=== PATIENT | female | born 1980 | race Caucasian/White ===

== ENCOUNTER 2017-12-01 21:29 | Emergency (ER) | payer SELFPAY ==
[~2017-12-01 21:29] MED LIST: CEPH-460 PO; HYDR-3533 PO; MACR100C2 PO
--- NOTE | 2017-12-01 22:17 | PD ---
HPI Chief Complaint Contractions Travel History International Travel<30 Days: No Contact w/Intl Traveler<30Days: No Known Affected Area: No History of Present Illness HPI 37-year-old , IUP at 31.4 care complicated by gestational diabetes, obesity, advanced maternal age, history of delivery 2 The patient presents complaining of the onset of contractions yesterday but reports that they were irregular and mild. She reports that they have gradually increased in intensity and frequency throughout the day today to now every 5 minutes. There are no aggravating or alleviating factors and no attempted treatments. The patient denies recent intercourse. Patient reports good movement. The patient denies any leaking of fluid or vaginal bleeding. The patient has no other complaints today. Weeks Gestation: 31 Para: 3 : 4 History Past Medical History Narrative Medical Gestational diabetes Obesity Obstetric History Obstetric History 203 Full-term 1 delivery 2 Past Surgical History Surgical History: No Previous Surgery Family History Family History: Negative Social History Alcohol Use: No Tobacco Use: No Substance Abuse: No Allergies-Medications (Allergen,Severity, Reaction): Coded Allergies: No Known Allergies (Unverified Adverse Reaction, Unknown, 12/01/17) Home Meds Active Scripts Hydrocodone-Acetaminophen (Lortab) 5-325 Mg Tab, 1 TAB PO Q6H Y for PAIN, #20 TAB 0 Refills Prov:Al Mercado MD 05/22/16 Nitrofurantoin Monohydrate Macrocrystals (Macrobid) 100 Mg Cap, 100 MG PO BID for Infection, #14 CAP 0 Refills Prov:Sanjuana Antonio 05/22/16 Cephalexin (Keflex) 500 Mg Cap, 500 MG PO Q12H for Infection for 7 Days, CAP 0 Refills Prov:Cruzito Biggs MD 05/20/16 Review of Systems Except as stated in HPI: all other systems reviewed are Neg Physical Exam Narrative GENERAL: Well-nourished, well-developed patient. SKIN: Warm and dry. HEAD: Normocephalic and atraumatic. EYES: No scleral icterus. No injection or drainage. ENT: No nasal drainage noted. Mucous membranes pink. Airway patent. NECK: Supple, trachea midline. No JVD. CARDIOVASCULAR: Regular rate and rhythm without murmurs, gallops, or rubs. RESPIRATORY: Breath sounds equal bilaterally. No accessory muscle use. BREASTS: Deferred ABDOMEN/GI: Abdomen soft, non-tender, bowel sounds present, no rebound, no guarding Gravid GENITOURINARY: External Genitalia: intact and normal in appearance. Normal BUS. No cervical or vaginal masses noted. Physiologic discharge. Grossly normal rugated. fibronectin was obtained. SVE closed/30/high FHT's: heart tones are in the 130s with moderate long-term variability, good accelerations, no decelerations noted. This is a reactive NST and category 1 heart rate tracing EXTREMITIES: No cyanosis or edema. BACK: Nontender without obvious deformity. NEUROLOGICAL/musculoskeletal: Awake and alert. Motor and sensory grossly within normal limits. Grossly normal muscle strength in all muscle groups. Normal speech. Grossly normal range of motion, gait Psychiatric: Grossly normal memory and affect MDM Plan Assessment/plan: 1. IUP at 30 one-point for 2. History of delivery 2 but no evidence of labor tonight. The patient presents complaining of contractions her cervix is closed and there are only occasional contractions noted. fibronectin negative. Strict labor precautions. encourage good hydration, counseled on signs and symptoms of labor 3. Urinalysis: No evidence of UTI 4. Obesity 5. Gestational diabetes: Follow with primary OB as directed 6. testing: Reassuring testing with reactive NST and category 1 heart rate tracing. heart rate tracing is reassuring and appropriate for gestational age. kick counts daily 7. Follow-up with primary OB in 2-3 days or sooner if needed Rose Molina MD Dec 01, 2017 22:17
[2017-12-01 23:07] LABS: BACTERIA, URINE FEW /hpf; BILIRUBIN, URINE NEG (NEG); BLOOD, URINE NEG (NEG); GLUCOSE,URINE >=500 mg/dL (NEG); KETONE, URINE 20 mg/dL (NEG); MUCUS URINE FEW /lpf (OCC); NITRITE,URINE NEG (NEG); SQUAMOUS EPITHELIAL CELL URINE 9 /hpf (0-5); URINE COLOR YELLOW (YELLW/STRAW); URINE LEUKOCYTE ESTERASE TRACE (NEG)
--- NOTE | 2017-12-01 23:36 | PD ---
MDM Diagnosis Diagnosis: Primary Impression: 31 weeks gestation of Additional Impression: Threatened labor Disposition: 01 DISCHARGE HOME Condition: Stable Patient Instructions: General Instructions, Labor (ED), Having Your Baby: The Labor Process (GEN), Movement (ED) Additional Instructions: Drink 8-10 large glasses of water per day. Call labor and delivery with any concerns or questions. Go to the hopsital with concerns of decreased movement, sudden gush of fluids, or vaginal bleeding. Departure Forms: Tests/Procedures Rose Molina MD Dec 01, 2017 23:36
== END 2017-12-02 00:05 | disposition home or self-care (01) ==
LOC: HOBED 21:29
DX: O20.0 Threatened abortion (principal); O99.213 Obesity complicating pregnancy, third trimester; O24.419 Gestational diabetes mellitus in pregnancy, unspecified control; Z3A.31 31 weeks gestation of pregnancy; Z79.899 Other long term (current) drug therapy
CPT/HCPCS: 81001; 82731; 99283

== ENCOUNTER 2018-01-22 16:00 | Inpatient (IN) ==
[2018-01-22] MEDS ORDERED: NIFEdipine 10 MG Capsule PO PRN (16:24)
[2018-01-22] MEDS ORDERED: fentaNYL Citrate Inj 100 MCG/2 ML Ampul IV.PUSH PRN ×2 (16:53)
[2018-01-22] MEDS ORDERED: Sodium Chlor 0.9% Inj 500 ML IV.SIG PRN (16:53)
[2018-01-22] MEDS ORDERED: Oxytocin 30 Units/500ml Premix 30 UNITS/500 ML BAG IV.SIG ONE (16:53)
[2018-01-22] MEDS ORDERED: Naloxone Inj 0.4 MG/ML Vial IV.PUSH PRN (16:53)
[2018-01-22] MEDS ORDERED: Sod Chloride 0.9% Inj 1,000 ML IV.CONT PRN (16:53)
[2018-01-22 17:00] LABS: Hematocrit 39.1 % (35.0-46.0); Mean Corpuscular HGB Conc 33.3 % (32.0-36.0); Mean Corpuscular Volume 87.1 fL (80.0-100.0); Mean Platelet Volume 9.1 fL (7.0-11.0); Platelet Count 253 th/mm3 (150-450); Red Blood Count 4.49 mil/mm3 (4.00-5.30); Red Cell Distribution Width 13.6 % (11.6-17.2); White Blood Count 8.5 th/mm3 (4.0-11.0)
[2018-01-22] MEDS ORDERED: Citric Acid/Sodium Citrate Liq 30 ML UDC PO SCH (17:00)
--- NOTE | 2018-01-22 17:00 | ED ---
History of Present Illness Primary Care Physician: No Primary Care Physician Chief Complaint: Contractions History of Present Illness: 37 year old female at 38/6 presents with contractions since this morning and pelvic pressure. She has felt unwell since this morning. Headache, SOB, fatigue, nausea. No fever, CP, change in vision, urinary symptoms, epigastric pain, or abdominal pain. Had some clear loss of fluid this morning. No vaginal bleeding. Feels like baby has been moving less. No complications this . Takes insulin for her diabetes (20-10 in am and 10-10 in evenings). She had two and one term vaginal . She had one spontaneous . Weeks Gestation:: 39 Para: 3 : 5 Review of Systems All other systems reviewed negative except as stated in HPI PMFSH - Medical / Surgical Hx Neg / Unobtainable Surgical History: No Previous Surgery - Medical History Medical History: Medical History (Last Updated 01/22/18 @ 17:15 by Audelia Harris MD, R1) Diabetes (Acute) - Tobacco History Second Hand Smoke Exposure: No Smoking Status: Never smoker - Alcohol History How Often Do You Have a Drink Containing Alcohol: Never (during ) - Substance Use History Substance History: No History of Abuse - Travel History Recent Travel in the [place] Within the Last 8 Weeks: No Recent Travel Out of the Country Within the Last 8 Weeks: No Medications and Allergies Active Medications: Active Medications Calcium Gluconate (Calcium Gluconate Inj) 1 gm IV.PUSH PRN PRN PRN Reason: Magnesium toxicity Citric Acid/Sodium Citrate (Sodium Citrate/Citric Acid Liq) 30 ml PO PIPELINE DISPATCHER DUNIA Stop: 01/26/18 16:59 Fentanyl Citrate (Fentanyl Inj) 50 mcg IV.PUSH Q1H PRN PRN Reason: Pain Scale 3 - 5 Fentanyl Citrate (Fentanyl Inj) 100 mcg IV.PUSH Q1H PRN PRN Reason: PAIN SCALE 6 TO 10 Sodium Chloride (Ns Inj) 500 mls @ 1,000 mls/hr IV.SIG UNSCH PRN PRN Reason: SEE LABEL COMMENTS Oxytocin (Pitocin 30 Units/Ns 500 Ml Premix) 30 units in 500 mls @ 999 mls/hr IV.SIG BOLUS ONE Stop: 01/22/18 17:23 Sodium Chloride (Ns Inj) 1,000 mls @ 100 mls/hr IV.CONT .Q10H PRN PRN Reason: SEE LABEL COMMENTS Lidocaine HCl (Xylocaine 1% Inj) 0.1 ml I-DERMAL PRN PRN PRN Reason: For IV start Stop: 01/25/18 16:52 Lidocaine HCl (Xylocaine 1% Inj) 10 ml INFILTRATN PRN PRN PRN Reason: For episiotomy repair Stop: 01/24/18 16:52 Mineral Oil (Muri-Lube Oil) 10 ml TOPICAL PRN PRN PRN Reason: PRN perineal massage Naloxone HCl (Narcan Inj) 0.1 mg IV.PUSH Q2M PRN PRN Reason: for opiate reversal Nifedipine (Procardia) 10 mg PO NOW PRN PRN Reason: SEE LABEL COMMENTS Sodium Chloride (Ns Flush) 2 ml IV.FLUSH BID DUNIA Sodium Chloride (Ns Flush) 2 ml IV.FLUSH PRN PRN PRN Reason: FLUSH AFTER USING IV ACCESS Allergies Allergy/AdvReac Type Severity Reaction Status Date / Time No Known Allergies Allergy Verified 01/22/18 16:55 Home Medications Medication Instructions Recorded Confirmed Type insulin NPH and regular human 10 unit INJ BID 01/10/18 01/22/18 History insulin NPH isoph U-100 human 10 unit INJ QPM 01/10/18 01/10/18 History insulin NPH isoph U-100 human 20 unit SUB-Q QAM 01/10/18 01/22/18 History Exam Vital signs: Vital Signs 01/22/18 16:22 01/22/18 16:26 01/22/18 16:42 Temperature 98.2 F Pulse Rate 68 71 74 Respiratory Rate 18 Blood Pressure 184/92 H 172/90 H 159/93 H Intake & Output 01/21/18 01/22/18 01/22/18 18:59 06:59 18:59 Weight 90 kg Narrative: GENERAL: Well-nourished, well-developed patient. SKIN: Warm and dry. HEAD: Normocephalic and atraumatic. EYES: No scleral icterus. No injection or drainage. ENT: No nasal drainage noted. Mucous membranes pink. Airway patent. NECK: Supple, trachea midline. No JVD. CARDIOVASCULAR: Regular rate and rhythm without murmurs, gallops, or rubs. RESPIRATORY: Breath sounds equal bilaterally. No accessory muscle use. BREASTS: Bilateral exam showed no masses , no retractions, no nipple discharge. ABDOMEN/GI: Abdomen soft, non-tender, bowel sounds present, no rebound, no guarding Gravid to [-] weeks size Fundal Height: [-] GENITOURINARY: External Genitalia: intact and normal in appearance BUS glands: [-] cervix: Dilatation:1 Effacement:10 Station: -3 Membranes: intact Uterine Contractions: every 10 minutes FHT's: Category: 1 Baseline:150 Reactive: yes Variability:moderate Decels: none Results - Labs CBC & Chem 7: 01/22/18 16:30 01/22/18 16:30 Assessment and Plan - Diagnosis (1) Hypertension affecting Code(s): O16.9 - Unspecified maternal hypertension, unspecified trimester Status: Acute Plan: 37 year old female at 38 weeks and 6 days presents with contractions. BP170 /90 -Urine dip protein 300 and 500 glucose -CMP -UA -Nifedipine 10mg lowered Bp 150/80 -Admit to labor and delivery -Mg -1/2 NS -Cervidil vaginally -GBS PCR -glucose 140; POC glucose checks nursing Discharge Plan - Discharge Disposition Patient Disposition: 30 Still Patient - Discharge Condition Condition: Good - Physicians Team ED Provider: Devang Bruner Primary Care Provider: Primary Care Johanny Romeo
[2018-01-22] MEDS ORDERED: Mag Sulf/Water 4 gm/100 ml 100 ML IV.SIG ONE (17:10)
[2018-01-22 17:18] LABS: Alanine Aminotransferase 23 U/L (10-53); Albumin 2.2 g/dL (3.4-5.0); Anion Gap 10 meq/L (5-15); Aspartate Aminotransferase 25 U/L (15-37); Calcium 8.3 mg/dL (8.5-10.1); Carbon Dioxide 22.5 meq/L (21.0-32.0); Chloride 106 meq/L (98-107); Glomerular Filtration Rate 72 mL/min (>89); Glucose,Random 173 mg/dL (74-106); Potassium 4.1 meq/L (3.5-5.1); Sodium 138 meq/L (136-145); Uric Acid 4.9 mg/dl (2.6-6.0)
[2018-01-22 17:20] LABS: Alkaline Phosphatase 101 U/L (45-117); Blood Urea Nitrogen 13 mg/dL (7-18); Total Protein 6.6 g/dL (6.4-8.2)
--- NOTE | 2018-01-22 17:31 | P.HPOB ---
History of Present Illness Primary Care Physician: No Primary Care Physician Chief Complaint: Contractions History of Present Illness: 37 year old female at 38/6 presents with contractions since this morning and pelvic pressure. She has felt unwell since this morning. Headache, SOB, fatigue, nausea. No fever, CP, change in vision, urinary symptoms, epigastric pain, or abdominal pain. Had some clear loss of fluid this morning. No vaginal bleeding. Feels like baby has been moving less. No complications this . Takes insulin for her diabetes (20-10 in am and 10-10 in evenings). She had two and one term vaginal . She had one spontaneous . Weeks Gestation:: 39 - Inpatient Certification I certify that the inpatient services were ordered in accordance with Medicare regulations governing the order. This includes certification that hospital inpatient services are reasonable and necessary and in the case of services not specified as inpatient-only under 42 CFR 419.22(n), that they are appropriately provided as inpatient services in accordance to with the 2-midnight benchmark under 43 CFR 412.3(e) Estimated Total Length of Stay (Days): 2 Plans for Post Hospital Care: Home Review of Systems All other systems reviewed negative except as stated in HPI [facility] - Medical History Medical History: Medical History (Last Updated 01/22/18 @ 17:15 by Audelia Harris MD, R1) Diabetes (Acute) - Tobacco History Second Hand Smoke Exposure: No Smoking Status: Never smoker - Alcohol History How Often Do You Have a Drink Containing Alcohol: Never (during ) - Substance Use History Substance History: No History of Abuse - Travel History Recent Travel in the [place] Within the Last 8 Weeks: No Recent Travel Out of the Country Within the Last 8 Weeks: No Medications and Allergies Active Medications: Active Medications Calcium Gluconate (Calcium Gluconate Inj) 1 gm IV.PUSH PRN PRN PRN Reason: Magnesium toxicity Citric Acid/Sodium Citrate (Sodium Citrate/Citric Acid Liq) 30 ml PO CONTRACT OFFICER [facility] Stop: 01/26/18 16:59 Fentanyl Citrate (Fentanyl Inj) 50 mcg IV.PUSH Q1H PRN PRN Reason: Pain Scale 3 - 5 Fentanyl Citrate (Fentanyl Inj) 100 mcg IV.PUSH Q1H PRN PRN Reason: PAIN SCALE 6 TO 10 Sodium Chloride (Ns Inj) 500 mls @ 1,000 mls/hr IV.SIG UNSCH PRN PRN Reason: SEE LABEL COMMENTS Sodium Chloride (Ns Inj) 1,000 mls @ 100 mls/hr IV.CONT .Q10H PRN PRN Reason: SEE LABEL COMMENTS Sodium Chloride (1/2 Normal Saline Inj) 1,000 mls @ 75 mls/hr IV.CONT .[id number] DUNIA Magnesium Sulfate (Magnesium Sulfate/Water 40 Gm/1000 Ml Premix) 40 gm in 1, 000 mls @ 50 mls/hr IV.CONT Q24H DUNIA Lidocaine HCl (Xylocaine 1% Inj) 0.1 ml I-DERMAL PRN PRN PRN Reason: For IV start Stop: 01/25/18 16:52 Lidocaine HCl (Xylocaine 1% Inj) 10 ml INFILTRATN PRN PRN PRN Reason: For episiotomy repair Stop: 01/24/18 16:52 Mineral Oil (Muri-Lube Oil) 10 ml TOPICAL PRN PRN PRN Reason: PRN perineal massage Naloxone HCl (Narcan Inj) 0.1 mg IV.PUSH Q2M PRN PRN Reason: for opiate reversal Nifedipine (Procardia) 10 mg PO NOW PRN PRN Reason: SEE LABEL COMMENTS Nifedipine (Procardia) 20 mg PO NOW PRN PRN Reason: SEE LABEL COMMENTS Nifedipine (Procardia) 20 mg PO NOW PRN PRN Reason: SEE LABEL COMMENTS Sodium Chloride (Ns Flush) 2 ml IV.FLUSH BID DUNIA Sodium Chloride (Ns Flush) 2 ml IV.FLUSH PRN PRN PRN Reason: FLUSH AFTER USING IV ACCESS Allergies Allergy/AdvReac Type Severity Reaction Status Date / Time No Known Allergies Allergy Verified 01/22/18 16:55 Home Medications Medication Instructions Recorded Confirmed Type insulin NPH and regular human 10 unit INJ BID 01/10/18 01/22/18 History insulin NPH isoph U-100 human 10 unit INJ QPM 01/10/18 01/10/18 History insulin NPH isoph U-100 human 20 unit SUB-Q QAM 01/10/18 01/22/18 History Exam Vital signs: Vital Signs 01/22/18 16:22 01/22/18 16:26 01/22/18 16:42 Temperature 98.2 F Pulse Rate 68 71 74 Respiratory Rate 18 Blood Pressure 184/92 H 172/90 H 159/93 H 01/22/18 17:00 Temperature Pulse Rate 94 H Respiratory Rate Blood Pressure 154/91 H Intake & Output 01/21/18 01/22/18 01/22/18 18:59 06:59 18:59 Weight 90 kg Narrative: GENERAL: Well-nourished, well-developed patient. SKIN: Warm and dry. HEAD: Normocephalic and atraumatic. EYES: No scleral icterus. No injection or drainage. ENT: No nasal drainage noted. Mucous membranes pink. Airway patent. NECK: Supple, trachea midline. No JVD. CARDIOVASCULAR: Regular rate and rhythm without murmurs, gallops, or rubs. RESPIRATORY: Breath sounds equal bilaterally. No accessory muscle use. BREASTS: Bilateral exam showed no masses , no retractions, no nipple discharge. ABDOMEN/GI: Abdomen soft, non-tender, bowel sounds present, no rebound, no guarding Gravid to [-] weeks size Fundal Height: [-] GENITOURINARY: External Genitalia: intact and normal in appearance BUS glands: [-] cervix: Dilatation:1 Effacement:10 Station: -3 Membranes: intact Uterine Contractions: every 10 minutes FHT's: Category: 1 Baseline:150 Reactive: yes Variability:moderate Decels: none Results - Labs CBC & Chem 7: 01/22/18 16:30 01/22/18 16:30 Labs: Laboratory Results - last 24 hr 01/22/18 01/22/18 01/22/18 16:30 16:30 16:30 WBC 8.5 RBC 4.49 Hgb 13.0 Hct 39.1 MCV 87.1 MCH 29.0 MCHC 33.3 RDW 13.6 Plt Count 253 MPV 9.1 Sodium 138 Potassium 4.1 Chloride 106 Carbon Dioxide 22.5 Anion Gap 10 BUN 13 Creatinine 0.88 Estimated GFR 72 L POC Glucose Random Glucose 173 H Uric Acid 4.9 Calcium 8.3 L Total Bilirubin 0.2 AST 25 ALT 23 Alkaline Phosphatase 101 Total Protein 6.6 Albumin 2.2 L Urine Opiates Screen Cancelled Ur Barbiturates Screen Cancelled Ur Amphetamines Screen Cancelled U Benzodiazepines Scrn Cancelled Urine Cocaine Screen Cancelled U Cannabinoids Screen Cancelled 01/22/18 17:24 WBC RBC Hgb Hct MCV MCH MCHC RDW Plt Count MPV Sodium Potassium Chloride Carbon Dioxide Anion Gap BUN Creatinine Estimated GFR POC Glucose 140 H Random Glucose Uric Acid Calcium Total Bilirubin AST ALT Alkaline Phosphatase Total Protein Albumin Urine Opiates Screen Ur Barbiturates Screen Ur Amphetamines Screen U Benzodiazepines Scrn Urine Cocaine Screen U Cannabinoids Screen Caprini VTE Risk Assessment Caprini VTE Risk Assessment: No/Low Risk (score <= 1) Caprini Risk Assessment Model: Point Value = 1 Point Value = 2 Point Value = 3 Point Value = 5 Age 41-60 Minor surgery BMI > 25 kg/m2 Swollen legs Varicose veins or History of unexplained or recurrent spontaneous Oral contraceptives or hormone replacement Sepsis (< 1 month) Serious lung disease, including pneumonia (< 1 month) Abnormal pulmonary function Acute myocardial infarction Congestive heart failure (< 1 month) History of inflammatory bowel disease Medical patient at bed rest Age 61-74 Arthroscopic surgery Major open surgery (> 45 min) Laparoscopic surgery (> 45 min) Malignancy Confined to bed (> 72 hours) Immobilizing plaster cast Central venous access Age >= 75 History of VTE Family history of VTE Factor V Leiden Prothrombin [id number] Lupus anticoagulant Anticardiolipin antibodies Elevated serum homocysteine Heparin-induced thrombocytopenia Other congenital or acquired thrombophilia Stroke (< 1 month) Elective arthroplasty Hip, pelvis, or leg fracture Acute spinal cord injury (< 1 month) Prophylaxis Regimen: Total Risk Factor Score Risk Level Prophylaxis Regimen 0-1 Low Early ambulation 2 Moderate Order ONE of the following: *Sequential Compression Device (SCD) *Heparin 5000 units SQ BID 3-4 Higher Order ONE of the following medications: *Heparin 5000 units SQ TID *Enoxaparin/Lovenox 40 mg SQ daily (WT < 150 kg, CrCl > 30 mL/min) *Enoxaparin/Lovenox 30 mg SQ daily (WT < 150 kg, CrCl > 10-29 mL/min) *Enoxaparin/Lovenox 30 mg SQ BID (WT < 150 kg, CrCl > 30 mL/min) AND/OR *Sequential Compression Device (SCD) 5 or more Highest Order ONE of the following medications: *Heparin 5000 units SQ TID (Preferred with Epidurals) *Enoxaparin/Lovenox 40 mg SQ daily (WT < 150 kg, CrCl > 30 mL/min) *Enoxaparin/Lovenox 30 mg SQ daily (WT < 150 kg, CrCl > 10-29 mL/min) *Enoxaparin/Lovenox 30 mg SQ BID (WT < 150 kg, CrCl > 30 mL/min) AND *Sequential Compression Device (SCD) Assessment and Plan - Diagnosis (1) Hypertension affecting Code(s): O16.9 - Unspecified maternal hypertension, unspecified trimester Status: Acute Plan: 37 year old female at 38 weeks and 6 days presents with contractions. BP170 /90 -Urine dip protein 300 and 500 glucose -CMP -UA -Nifedipine 10mg lowered Bp 150/80 -Admit to labor and delivery -Mg -1/2 NS -Cervidil vaginally -GBS PCR -glucose 140; POC glucose checks nursing
[2018-01-22] MEDS: Mag Sulf/Water 40 gm/1000 ml 40 GM/1,000 ML BAG IV.CONT SCH (17:33)
[2018-01-22 17:55] LABS: Amphetamine Urine With Conf Neg (Neg); Benzodiazepine Urine With Conf Neg (Neg)
[2018-01-22 17:58] LABS: Bilirubin,Urine Negative (Negative); Clarity,Urine Hazy (Clear); Color,Urine Yellow (Yellw/Straw); Glucose,Urine (UA) 500 or Greater mg/dL (Negative); Leukocyte Esterase,Urine Trace (Negative); Nitrite,Urine Negative (Negative); Protein/Creatinine Ratio,Urine 3.02 (0.00-0.14); Specific Gravity,Urine 1.022 (1.002-1.035); Squamous Epithelial Cell,Urine 3 /hpf (0-5)
[2018-01-22] MEDS: Acetaminophen 325 MG Tablet PO PRN (19:40)
[2018-01-22] MEDS ORDERED: Butalbital/APAP/Caff 50/325/40 MG Tablet PO ONE (22:00)
[2018-01-22] MEDS ORDERED: Labetalol HCl Inj 100 MG/20 ML Vial ONE (22:57)
[2018-01-22] MEDS ORDERED: fentaNYL 2MCG-Bupiv 0.125% Epi 150 ML EPIDURAL ONE (23:10)
[2018-01-22] MEDS: Sodium Chloride 0.45 % Inj 1,000 ML IV.CONT SCH (23:57)
[2018-01-23] MEDS ORDERED: fentaNYL 2MCG-Bupiv 0.125% Epi 150 ML EPIDURAL PRN (00:17)
[2018-01-23] MEDS ORDERED: fentaNYL Citrate Inj 100 MCG/2 ML Ampul EPIDURAL ONE (00:17)
[2018-01-23] MEDS ORDERED: Oxytocin 30 Units/500ml Premix 30 UNITS/500 ML BAG ONE ×2 (02:58)
--- NOTE | 2018-01-23 04:20 | P.OBDELI ---
Weeks Gestation: 39 Patient Started Active Labor: Yes Medical Induction of Labor: Yes Artificial Rupture of Membrane: Yes Anesthesia: Epidural Episiotomy: none Vaginal Delivery: Normal Presentation: Occiput anterior Nuchal Cord: None Delayed Cord Clamping (45 sec): Yes Placenta: Spontaneous delivery, Intact, 3 vessel cord Laceration: None Estimated blood loss (mL): 200 : Male (Ashley admitted for cervical ripening due to elevated blood pressures. Her pressures mariana to initiate hypertension protocol and did not respond to procardia. They did respond to labatelol and magnesium was initiated for seizure prophylaxis. The pressures were then controlled and the cervidil removed and membranes artificially ruptured. She progressed to complete with an epidural and delivered from [place] with clear fluid and no nuchal cord. Delayed clamping of cord and baby placed skin to skin. Weight 6 pounds 15 ounces. Apgars were5 and 8. Placenta removed intact with 3 VC. No lacerations. Will continue Magnesium 12 hours and reassess. Will not give insulin but check FBS on PPD 1)
[2018-01-23] MEDS ORDERED: Naloxone Inj 0.4 MG/ML Vial IV.PUSH PRN (04:21)
[2018-01-23] MEDS ORDERED: Zolpidem Tartrate 5 MG Tablet PO PRN (04:21)
[2018-01-23] MEDS ORDERED: Acetaminophen 325 MG Tablet PO PRN (04:21)
[2018-01-23] MEDS ORDERED: Witch Hazel 50%/Glyderin 12.5% 40 Pad Jar RECTAL PRN (04:21)
[2018-01-23] MEDS ORDERED: Benzocaine 20% Top Spray 60 ML Can TOPICAL PRN (04:21)
[2018-01-23] MEDS ORDERED: Bisacodyl 10 MG Supp RECTAL PRN (04:21)
[2018-01-23] MEDS ORDERED: Oxytocin 30 Units/500ml Premix 30 UNITS/500 ML BAG IV.CONT SCH (04:30)
[2018-01-23 06:20] LABS: Albumin 2.2 g/dL (3.4-5.0)
[2018-01-23 06:22] LABS: Total Protein 6.8 g/dL (6.4-8.2)
[2018-01-23] MEDS ORDERED: Dextrose 50% in Water 50 ML Vial IV.PUSH PRN (11:09)
[2018-01-23] MEDS: Senna/Docusate Sodium 8.6/50 MG Tablet PO SCH ×2 (11:24→22:14)
[2018-01-23] MEDS: Mag Sulf/Water 40 gm/1000 ml 40 GM/1,000 ML BAG IV.CONT SCH ×2 (13:04→21:07)
[2018-01-23] MEDS: Insulin NovoLIN Regular Correctional Sugar Inj SQ SCH ×6 (14:14→22:36)
[2018-01-23] MEDS ORDERED: Measles/Mumps/Rubella Vaccine Inj 0.5 ML Vial SQ ONE (16:00)
[2018-01-23] MEDS ORDERED: Diphtheria/Tetanus/Pertussis Vaccine Inj 0.5 ML Syringe IM ONE (16:00)
[2018-01-23] MEDS: Sodium Chloride 0.45 % Inj 1,000 ML IV.CONT SCH ×2 (16:23→21:07)
[2018-01-23] MEDS: glipiZIDE 10 MG Tablet PO SCH (16:24)
[2018-01-24] MEDS: Insulin NovoLIN Regular Correctional Sugar Inj SQ SCH ×6 (00:07→14:22)
--- NOTE | 2018-01-24 09:05 | P.PNOB ---
Subjective Post day: 1 Interval history: Patient is a 37-year-old delivered at 39 weeks and 0 days. Patient is day 1 after . Patient's pain is well-controlled. Patient reports eating and drinking without any nausea or vomiting. Patient reports minimal bleeding. Patient has passed gas but no bowel movements. Patient is walking without lower extremity pain or shortness of breath. Patient reports desire for contraception outpatient and breast-feeding. Objective Vital Signs/I&O: Vital Signs 01/23/18 09:43 01/23/18 09:55 01/23/18 10:55 Temperature Pulse Rate 92 H 101 H 99 H Respiratory Rate 18 Blood Pressure 147/79 H 153/78 H 01/23/18 10:59 01/23/18 11:00 01/23/18 11:01 Temperature 98.3 F Pulse Rate 105 H Respiratory Rate 16 17 Blood Pressure 158/84 H 01/23/18 11:05 01/23/18 11:20 01/23/18 11:50 Temperature Pulse Rate 98 H 96 H 94 H Respiratory Rate Blood Pressure 01/23/18 11:55 01/23/18 12:55 01/23/18 13:06 Temperature Pulse Rate 89 93 H 106 H Respiratory Rate 16 Blood Pressure 157/81 H 155/78 H 01/23/18 13:55 01/23/18 14:05 01/23/18 14:55 Temperature Pulse Rate 102 H 97 H 94 H Respiratory Rate Blood Pressure 148/82 H 01/23/18 15:20 01/23/18 15:22 01/23/18 15:28 Temperature 98.1 F Pulse Rate 90 92 H Respiratory Rate 18 Blood Pressure 157/82 H 01/23/18 15:55 01/23/18 16:11 01/23/18 16:25 Temperature Pulse Rate 91 H 92 H 94 H Respiratory Rate 17 Blood Pressure 150/79 H 01/23/18 16:55 01/23/18 17:41 01/23/18 17:55 Temperature Pulse Rate 99 H 95 H Respiratory Rate 18 Blood Pressure 144/81 H 01/23/18 18:10 01/23/18 18:15 01/23/18 18:50 Temperature Pulse Rate 104 H 99 H 98 H Respiratory Rate 18 Blood Pressure 152/77 H 01/23/18 18:55 01/23/18 19:42 01/23/18 19:55 Temperature 98.2 F Pulse Rate 94 H 93 H 97 H Respiratory Rate 17 Blood Pressure 144/77 H 01/23/18 20:05 01/23/18 20:09 01/23/18 20:45 Temperature Pulse Rate 92 H 93 H Respiratory Rate 15 Blood Pressure 158/86 H 01/23/18 20:55 01/23/18 21:05 01/23/18 21:25 Temperature Pulse Rate 91 H 89 92 H Respiratory Rate 16 Blood Pressure 150/87 H 01/23/18 21:30 01/23/18 21:55 01/23/18 22:40 Temperature Pulse Rate 92 H 90 90 Respiratory Rate Blood Pressure 136/106 H 01/23/18 22:41 01/23/18 23:00 01/23/18 23:55 Temperature Pulse Rate 94 H 92 H Respiratory Rate 17 Blood Pressure 150/85 H 148/77 H 01/24/18 00:00 01/24/18 00:55 01/24/18 01:00 Temperature 98.0 F Pulse Rate 89 Respiratory Rate 15 14 Blood Pressure 155/78 H 01/24/18 01:05 01/24/18 01:55 01/24/18 02:00 Temperature Pulse Rate 90 89 Respiratory Rate 15 Blood Pressure 01/24/18 02:35 01/24/18 02:40 01/24/18 03:00 Temperature Pulse Rate 93 H 84 83 Respiratory Rate 16 Blood Pressure 153/81 H 156/81 H 01/24/18 04:11 Temperature 98.4 F Pulse Rate 73 Respiratory Rate 18 Blood Pressure 128/69 Intake & Output 01/23/18 01/24/18 01/24/18 18:59 06:59 18:59 Intake Total 1999 Balance 1999 Intake: IV 1999 Magnesium Sulfate/Water 40 gm/ 1000 / 1000 1000 ml Premix 40 gm In 1,000 ml @ 2 GM/HR 50 mls/hr IV.CONT Q24H [facility] Rx#:[id number] 1/2 Normal Saline Inj 1,000 ML 1000 / 1000 @ 75 mls/hr IV.CONT .[id number] [facility] Rx#:[id number] Result Diagrams: 01/22/18 16:30 01/22/18 16:30 Objective Remarks: GENERAL: Well-nourished, well-developed patient. CARDIOVASCULAR: Regular rate and rhythm without murmurs, gallops, or rubs. RESPIRATORY: Breath sounds equal bilaterally. No accessory muscle use. ABDOMEN/GI: Abdomen soft, non-tender. Fundus: Firm, non-tender at umbilicus. GENITOURINARY: Light to moderate bleeding. EXTREMITIES: No cyanosis or edema, non-tender, without signs of DVT. Medications and IVs: Active Medications Acetaminophen (Tylenol) 650 mg PO Q4H PRN PRN Reason: HEADACHE PAIN Last Admin: 01/22/18 19:40 Dose: 650 mg Acetaminophen (Tylenol) 650 mg PO Q4H PRN PRN Reason: PAIN SCALE 1 TO 2 Al Hydroxide/Mg Hydroxide (Milk Of Magnesia Liq) 30 ml PO Q12H PRN PRN Reason: Mild Constipation Benzocaine (Americaine 20% Top [place]) 1 spray TOPICAL Q4H PRN PRN Reason: For Perineum Discomfort Bisacodyl (Dulcolax Supp) 10 mg RECTAL DAILY PRN PRN Reason: SEVERE CONSITIPATION Calcium Gluconate (Calcium Gluconate Inj) 1 gm IV.PUSH PRN PRN PRN Reason: Magnesium toxicity Citric Acid/Sodium Citrate (Sodium Citrate/Citric Acid Liq) 30 ml PO BLOOD BANK TECHNOLOGIST [facility] Stop: 01/26/18 16:59 Dextrose (D50w Vial) 50 ml IV.PUSH UNSCH PRN PRN Reason: PER HYPOGLYCEMIA PROTOCOL Fentanyl Citrate (Fentanyl Inj) 50 mcg IV.PUSH Q1H PRN PRN Reason: Pain Scale 3 - 5 Fentanyl Citrate (Fentanyl Inj) 100 mcg IV.PUSH Q1H PRN PRN Reason: PAIN SCALE 6 TO 10 Last Admin: 01/22/18 22:47 Dose: 100 mcg Glipizide (Glucotrol) 10 mg PO BID@0800,1700 [facility] Last Admin: 01/23/18 16:24 Dose: 10 mg Glucagon (Glucagon Inj) 1 mg OTHER PRN PRN PRN Reason: for Hypoglycemia Protocol Sodium Chloride (Ns Inj) 500 mls @ 1,000 mls/hr IV.SIG UNSCH PRN PRN Reason: SEE LABEL COMMENTS Sodium Chloride (Ns Inj) 1,000 mls @ 100 mls/hr IV.CONT .Q10H PRN PRN Reason: SEE LABEL COMMENTS Last Admin: 01/22/18 19:27 Dose: 100 mls/hr Sodium Chloride (1/2 Normal Saline Inj) 1,000 mls @ 75 mls/hr IV.CONT .[id number] [facility] Last Admin: 01/23/18 21:07 Dose: Not Given Magnesium Sulfate (Magnesium Sulfate/Water 40 Gm/1000 Ml Premix) 40 gm in 1, 000 mls @ 50 mls/hr IV.CONT Q24H [facility] Last Admin: 01/23/18 21:07 Dose: Not Given Fentanyl/Bupivacaine/Sodium Chlor (Fentanyl 2 Mcg-Bupiv 0.125% Epi) 150 mls @ 10 mls/hr EPIDURAL PRN PRN PRN Reason: for Labor Pain Last Admin: 01/22/18 23:55 Dose: 10 mls/hr Ibuprofen (Motrin) 800 mg PO Q8H PRN PRN Reason: For cramping Last Admin: 01/23/18 22:14 Dose: 800 mg Insulin Human Regular (Novolin R Correctional Sugar Inj) 0 units SQ Q2H [facility]; Protocol Last Admin: 01/24/18 04:44 Dose: Not Given Lactulose (Lactulose Liq) 30 ml PO DAILY PRN PRN Reason: SEVERE CONSITIPATION Lidocaine HCl (Xylocaine 1% Inj) 0.1 ml I-DERMAL PRN PRN PRN Reason: For IV start Stop: 01/25/18 16:52 Lidocaine HCl (Xylocaine 1% Inj) 10 ml INFILTRATN PRN PRN PRN Reason: For episiotomy repair Stop: 01/24/18 16:52 Mineral Oil (Muri-Lube Oil) 10 ml TOPICAL PRN PRN PRN Reason: PRN perineal massage Naloxone HCl (Narcan Inj) 0.1 mg IV.PUSH Q2M PRN PRN Reason: for opiate reversal Naloxone HCl (Narcan Inj) 0.1 mg IV.PUSH Q2M PRN PRN Reason: for opiate reversal Nifedipine (Procardia) 20 mg PO NOW PRN PRN Reason: SEE LABEL COMMENTS Ondansetron HCl (Zofran Odt) 4 mg PO Q6H PRN PRN Reason: NAUSEA OR VOMITING Last Admin: 01/23/18 04:36 Dose: 4 mg Senna/Docusate Sodium (Conchita-Colace) 1 tab PO BID [facility] Last Admin: 01/23/18 22:14 Dose: 1 tab Sennosides (Senokot) 17.2 mg PO Q12H PRN PRN Reason: Moderate Constipation Sodium Chloride (Ns Flush) 2 ml IV.FLUSH BID [facility] Last Admin: 01/23/18 20:11 Dose: Not Given Sodium Chloride (Ns Flush) 2 ml IV.FLUSH PRN PRN PRN Reason: FLUSH AFTER USING IV ACCESS Sodium Chloride (Ns Flush) 2 ml IV.FLUSH BID [facility] Last Admin: 01/23/18 20:11 Dose: Not Given Sodium Chloride (Ns Flush) 2 ml IV.FLUSH PRN PRN PRN Reason: FLUSH AFTER USING IV ACCESS Witch Sharmin/Glycerin (Tucks Pads) 1 applicatio RECTAL QID PRN PRN Reason: HEMORRHOIDS Zolpidem Tartrate (Ambien) 5 mg PO HS PRN PRN Reason: SLEEP Assessment and Plan - Diagnosis (1) Vaginal delivery Code(s): O80 - Encounter for full-term uncomplicated delivery Status: Acute Plan: Patient is a 37-year-old delivered at 39 weeks and 0 days. Patient is day 1 after . Patient was counseled to do 6 weeks of pelvic rest. Patient was counseled to follow up in 6 weeks. Patient requested follow-up and contraception. --AF VSS --Continue routine care --Motrin and Tylenol when necessary for pain --Encourage OOB --Pelvic rest for 6 weeks will need follow-up appointment at that time. --Contraception: outpatient --Anticipate discharge tomorrow (2) Gestational diabetes Code(s): O24.419 - Gestational diabetes mellitus in , unspecified control Status: Acute Plan: Sugars yesterday over 200. Required supplemental 45 units regular insulin since noon yesterday. This morning fasting glucose 100. -15 PH insulin at breakfast and 15 at dinner with sliding scale -check bedside glucose levels every 4 hours -have nursing notify MD if glucose >200 -continue on glipizide
[2018-01-24] MEDS: glipiZIDE 10 MG Tablet PO SCH ×2 (09:25→18:03)
[2018-01-24 09:40] VITALS: BP 143/98; PULSE 87; RESP 16; TEMP 98.2
[2018-01-24] MEDS ORDERED: Dextrose 50% in Water 50 ML Vial IV.PUSH PRN (18:54)
[2018-01-24] MEDS: Senna/Docusate Sodium 8.6/50 MG Tablet PO SCH (21:29)
[2018-01-25] MEDS: Senna/Docusate Sodium 8.6/50 MG Tablet PO SCH ×2 (08:03→20:58)
[2018-01-25] MEDS: glipiZIDE 10 MG Tablet PO SCH ×2 (08:03→17:19)
--- NOTE | 2018-01-25 08:39 | P.PNOB ---
Subjective Post day: 2 Interval history: Patient is a 37-year-old delivered at 39 weeks and 0 days. Patient is day 1 after . Patient's pain is well-controlled. Patient reports eating and drinking without any nausea or vomiting. Patient reports minimal bleeding. Patient has passed gas but no bowel movements. Patient is walking without lower extremity pain or shortness of breath. Patient reports desire for contraception outpatient and breast-feeding. Objective Result Diagrams: 01/22/18 16:30 01/22/18 16:30 Objective Remarks: GENERAL: Well-nourished, well-developed patient. CARDIOVASCULAR: Regular rate and rhythm without murmurs, gallops, or rubs. RESPIRATORY: Breath sounds equal bilaterally. No accessory muscle use. ABDOMEN/GI: Abdomen soft, non-tender. Fundus: Firm, non-tender at umbilicus. GENITOURINARY: Light to moderate bleeding. EXTREMITIES: No cyanosis or edema, non-tender, without signs of DVT. Medications and IVs: Active Medications Acetaminophen (Tylenol) 650 mg PO Q4H PRN PRN Reason: HEADACHE PAIN Last Admin: 01/22/18 19:40 Dose: 650 mg Acetaminophen (Tylenol) 650 mg PO Q4H PRN PRN Reason: PAIN SCALE 1 TO 2 Al Hydroxide/Mg Hydroxide (Milk Of Magnesia Liq) 30 ml PO Q12H PRN PRN Reason: Mild Constipation Benzocaine (Americaine 20% Top [place]) 1 spray TOPICAL Q4H PRN PRN Reason: For Perineum Discomfort Bisacodyl (Dulcolax Supp) 10 mg RECTAL DAILY PRN PRN Reason: SEVERE CONSITIPATION Calcium Gluconate (Calcium Gluconate Inj) 1 gm IV.PUSH PRN PRN PRN Reason: Magnesium toxicity Citric Acid/Sodium Citrate (Sodium Citrate/Citric Acid Liq) 30 ml PO MANAGEMENT PROFESSIONAL [facility] Stop: 01/26/18 16:59 Dextrose (D50w Vial) 50 ml IV.PUSH UNSCH PRN PRN Reason: PER HYPOGLYCEMIA PROTOCOL Fentanyl Citrate (Fentanyl Inj) 50 mcg IV.PUSH Q1H PRN PRN Reason: Pain Scale 3 - 5 Fentanyl Citrate (Fentanyl Inj) 100 mcg IV.PUSH Q1H PRN PRN Reason: PAIN SCALE 6 TO 10 Last Admin: 01/22/18 22:47 Dose: 100 mcg Glipizide (Glucotrol) 10 mg PO BID@0800,1700 [facility] Last Admin: 01/25/18 08:03 Dose: 10 mg Glucagon (Glucagon Inj) 1 mg OTHER PRN PRN PRN Reason: for Hypoglycemia Protocol Sodium Chloride (Ns Inj) 500 mls @ 1,000 mls/hr IV.SIG UNSCH PRN PRN Reason: SEE LABEL COMMENTS Sodium Chloride (Ns Inj) 1,000 mls @ 100 mls/hr IV.CONT .Q10H PRN PRN Reason: SEE LABEL COMMENTS Last Admin: 01/22/18 19:27 Dose: 100 mls/hr Sodium Chloride (1/2 Normal Saline Inj) 1,000 mls @ 75 mls/hr IV.CONT .[id number] [facility] Last Admin: 01/23/18 21:07 Dose: Not Given Magnesium Sulfate (Magnesium Sulfate/Water 40 Gm/1000 Ml Premix) 40 gm in 1, 000 mls @ 50 mls/hr IV.CONT Q24H [facility] Last Admin: 01/23/18 21:07 Dose: Not Given Fentanyl/Bupivacaine/Sodium Chlor (Fentanyl 2 Mcg-Bupiv 0.125% Epi) 150 mls @ 10 mls/hr EPIDURAL PRN PRN PRN Reason: for Labor Pain Last Admin: 01/22/18 23:55 Dose: 10 mls/hr Ibuprofen (Motrin) 800 mg PO Q8H PRN PRN Reason: For cramping Last Admin: 01/25/18 02:21 Dose: 800 mg Insulin Human Regular (Novolin R Correctional Sugar Inj) 0 units SQ ACHS [facility]; Protocol Lactulose (Lactulose Liq) 30 ml PO DAILY PRN PRN Reason: SEVERE CONSITIPATION Lidocaine HCl (Xylocaine 1% Inj) 0.1 ml I-DERMAL PRN PRN PRN Reason: For IV start Stop: 01/25/18 16:52 Mineral Oil (Muri-Lube Oil) 10 ml TOPICAL PRN PRN PRN Reason: PRN perineal massage Naloxone HCl (Narcan Inj) 0.1 mg IV.PUSH Q2M PRN PRN Reason: for opiate reversal Nifedipine (Procardia) 20 mg PO NOW PRN PRN Reason: SEE LABEL COMMENTS Ondansetron HCl (Zofran Odt) 4 mg PO Q6H PRN PRN Reason: NAUSEA OR VOMITING Last Admin: 01/23/18 04:36 Dose: 4 mg Senna/Docusate Sodium (Conchita-Colace) 1 tab PO BID [facility] Last Admin: 01/25/18 08:03 Dose: 1 tab Sennosides (Senokot) 17.2 mg PO Q12H PRN PRN Reason: Moderate Constipation Sodium Chloride (Ns Flush) 2 ml IV.FLUSH BID [facility] Last Admin: 01/23/18 20:11 Dose: Not Given Sodium Chloride (Ns Flush) 2 ml IV.FLUSH PRN PRN PRN Reason: FLUSH AFTER USING IV ACCESS Witch Sharmin/Glycerin (Tucks Pads) 1 applicatio RECTAL QID PRN PRN Reason: HEMORRHOIDS Zolpidem Tartrate (Ambien) 5 mg PO HS PRN PRN Reason: SLEEP Assessment and Plan - Diagnosis (1) Vaginal delivery Code(s): O80 - Encounter for full-term uncomplicated delivery Status: Acute Plan: Patient is a 37-year-old delivered at 39 weeks and 0 days. Patient is day 1 after . Patient was counseled to do 6 weeks of pelvic rest. Patient was counseled to follow up in 6 weeks. Patient requested follow-up and contraception. --AF VSS --Continue routine care --Motrin and Tylenol when necessary for pain --Encourage OOB --Pelvic rest for 6 weeks will need follow-up appointment at that time. --Contraception: outpatient --Anticipate discharge tomorrow (2) Gestational diabetes Code(s): O24.419 - Gestational diabetes mellitus in , unspecified control Status: Acute Plan: Sugars yesterday over 200. Required supplemental 45 units regular insulin since noon yesterday. This morning fasting glucose 100. -15 PH insulin and regular 10 at breakfast and 15 NPH and 10 regular at dinner with sliding scale -check bedside glucose levels every 4 hours -have nursing notify MD if glucose >200 -continue on glipizide 10mg BID
[2018-01-25] MEDS: Insulin NovoLIN Regular Correctional Sugar Inj SQ SCH (12:41)
[2018-01-25] MEDS: Acetaminophen 325 MG Tablet PO PRN (20:58)
[2018-01-25] MEDS ORDERED: Diphtheria/Tetanus/Pertussis Vaccine Inj 0.5 ML Syringe IM ONE (21:30)
--- NOTE | 2018-01-26 07:53 | P.PNOB ---
Subjective Interval history: Patient is a 37-year-old delivered at 39 weeks and 0 days. Patient is day 3 after . Patient's pain is well-controlled. Patient reports eating and drinking without any nausea or vomiting. Patient reports minimal bleeding. Patient has passed gas and bowel movements. Patient is walking without lower extremity pain or shortness of breath. Patient denies any headache or vision changes. Objective Result Diagrams: 01/22/18 16:30 01/22/18 16:30 Objective Remarks: GENERAL: Well-nourished, well-developed patient. CARDIOVASCULAR: Regular rate and rhythm without murmurs, gallops, or rubs. RESPIRATORY: Breath sounds equal bilaterally. No accessory muscle use. ABDOMEN/GI: Abdomen soft, non-tender. Fundus: Firm, non-tender at umbilicus. GENITOURINARY: Light to moderate bleeding. EXTREMITIES: No cyanosis or edema, non-tender, without signs of DVT. Medications and IVs: Active Medications Acetaminophen (Tylenol) 650 mg PO Q4H PRN PRN Reason: HEADACHE PAIN Last Admin: 01/25/18 20:58 Dose: 650 mg Acetaminophen (Tylenol) 650 mg PO Q4H PRN PRN Reason: PAIN SCALE 1 TO 2 Al Hydroxide/Mg Hydroxide (Milk Of Magnesia Liq) 30 ml PO Q12H PRN PRN Reason: Mild Constipation Benzocaine (Americaine 20% Top [place]) 1 spray TOPICAL Q4H PRN PRN Reason: For Perineum Discomfort Bisacodyl (Dulcolax Supp) 10 mg RECTAL DAILY PRN PRN Reason: SEVERE CONSITIPATION Calcium Gluconate (Calcium Gluconate Inj) 1 gm IV.PUSH PRN PRN PRN Reason: Magnesium toxicity Citric Acid/Sodium Citrate (Sodium Citrate/Citric Acid Liq) 30 ml PO SOLDER TECHNICIAN [facility] Stop: 01/26/18 16:59 Dextrose (D50w Vial) 50 ml IV.PUSH UNSCH PRN PRN Reason: PER HYPOGLYCEMIA PROTOCOL Fentanyl Citrate (Fentanyl Inj) 50 mcg IV.PUSH Q1H PRN PRN Reason: Pain Scale 3 - 5 Fentanyl Citrate (Fentanyl Inj) 100 mcg IV.PUSH Q1H PRN PRN Reason: PAIN SCALE 6 TO 10 Last Admin: 01/22/18 22:47 Dose: 100 mcg Glipizide (Glucotrol) 10 mg PO BID@0800,1700 [facility] Last Admin: 01/25/18 17:19 Dose: 10 mg Glucagon (Glucagon Inj) 1 mg OTHER PRN PRN PRN Reason: for Hypoglycemia Protocol Sodium Chloride (Ns Inj) 500 mls @ 1,000 mls/hr IV.SIG UNSCH PRN PRN Reason: SEE LABEL COMMENTS Sodium Chloride (Ns Inj) 1,000 mls @ 100 mls/hr IV.CONT .Q10H PRN PRN Reason: SEE LABEL COMMENTS Last Admin: 01/22/18 19:27 Dose: 100 mls/hr Sodium Chloride (1/2 Normal Saline Inj) 1,000 mls @ 75 mls/hr IV.CONT .[id number] [facility] Last Admin: 01/23/18 21:07 Dose: Not Given Magnesium Sulfate (Magnesium Sulfate/Water 40 Gm/1000 Ml Premix) 40 gm in 1, 000 mls @ 50 mls/hr IV.CONT Q24H [facility] Last Admin: 01/23/18 21:07 Dose: Not Given Fentanyl/Bupivacaine/Sodium Chlor (Fentanyl 2 Mcg-Bupiv 0.125% Epi) 150 mls @ 10 mls/hr EPIDURAL PRN PRN PRN Reason: for Labor Pain Last Admin: 01/22/18 23:55 Dose: 10 mls/hr Ibuprofen (Motrin) 800 mg PO Q8H PRN PRN Reason: For cramping Last Admin: 01/25/18 20:59 Dose: 800 mg Insulin Human NPH (Novolin N Inj) 15 units SQ BIDAC [facility] Last Admin: 01/25/18 17:20 Dose: 15 units Insulin Human Regular (Novolin R Correctional Sugar Inj) 0 units SQ ACHS [facility]; Protocol Last Admin: 01/25/18 12:41 Dose: 5 units Insulin Human Regular (Novolin R Inj) 10 units SQ BIDAC [facility] Last Admin: 01/25/18 17:26 Dose: 10 units Labetalol HCl (Trandate) 200 mg PO BID [facility] Lactulose (Lactulose Liq) 30 ml PO DAILY PRN PRN Reason: SEVERE CONSITIPATION Mineral Oil (Muri-Lube Oil) 10 ml TOPICAL PRN PRN PRN Reason: PRN perineal massage Naloxone HCl (Narcan Inj) 0.1 mg IV.PUSH Q2M PRN PRN Reason: for opiate reversal Nifedipine (Procardia) 20 mg PO NOW PRN PRN Reason: SEE LABEL COMMENTS Nifedipine (Procardia) 10 mg PO ONCE ONE Stop: 01/26/18 08:01 Ondansetron HCl (Zofran Odt) 4 mg PO Q6H PRN PRN Reason: NAUSEA OR VOMITING Last Admin: 01/23/18 04:36 Dose: 4 mg Senna/Docusate Sodium (Conchita-Colace) 1 tab PO BID [facility] Last Admin: 01/25/18 20:58 Dose: 1 tab Sennosides (Senokot) 17.2 mg PO Q12H PRN PRN Reason: Moderate Constipation Sodium Chloride (Ns Flush) 2 ml IV.FLUSH BID [facility] Last Admin: 01/25/18 21:34 Dose: 2 ml Sodium Chloride (Ns Flush) 2 ml IV.FLUSH PRN PRN PRN Reason: FLUSH AFTER USING IV ACCESS Witch Sharmin/Glycerin (Tucks Pads) 1 applicatio RECTAL QID PRN PRN Reason: HEMORRHOIDS Zolpidem Tartrate (Ambien) 5 mg PO HS PRN PRN Reason: SLEEP Assessment and Plan - Diagnosis (1) Vaginal delivery Code(s): O80 - Encounter for full-term uncomplicated delivery Status: Acute Plan: Patient is a 37-year-old delivered at 39 weeks and 0 days. Patient is day 3 after . Patient was counseled to do 6 weeks of pelvic rest. Patient was counseled to follow up in 6 weeks. Patient requested follow-up and contraception. --AF VSS --Continue routine care --Motrin and Tylenol when necessary for pain --Encourage OOB --Pelvic rest for 6 weeks will need follow-up appointment at that time. --Contraception: outpatient --Anticipate discharge possibly today pending pressures (2) Gestational diabetes Code(s): O24.419 - Gestational diabetes mellitus in , unspecified control Status: Acute Plan: Blood glucose overnight ranging from 85-143. Much better controlled than previous days. -Will continue 15 PH insulin and regular 10 at breakfast and 15 NPH and 10 regular at dinner with sliding scale -check bedside glucose levels every 4 hours -have nursing notify MD if glucose >200 -continue on glipizide 10mg BID (3) Hypertension affecting Code(s): O16.9 - Unspecified maternal hypertension, unspecified trimester Status: Acute Plan: Patient was initially induced for preeclampsia and elevated pressures Blood pressures have been ranging in the 150s over 80s until this morning when she had a one-time reading of 167/78 Procardia 10 mg p.o. 1, labetalol 100 mg p.o. twice daily We will trend blood pressures today and if pressures improve we will consider discharge today
[2018-01-26] MEDS ORDERED: NIFEdipine 10 MG Capsule PO ONE (08:00)
[2018-01-26] MEDS ORDERED: Labetalol 200 MG Tablet PO SCH (09:00)
[2018-01-26] MEDS: Labetalol 100 MG Tablet PO SCH ×2 (09:31→20:48)
[2018-01-26] MEDS: Senna/Docusate Sodium 8.6/50 MG Tablet PO SCH ×2 (09:31→20:49)
[2018-01-26] MEDS: glipiZIDE 10 MG Tablet PO SCH ×2 (11:40→16:55)
[2018-01-26] MEDS: Insulin NovoLIN Regular Correctional Sugar Inj SQ SCH ×4 (12:07→21:00)
[2018-01-26] MEDS ORDERED: glipiZIDE 10 MG Tablet PO ONE (12:30)
[2018-01-27] MEDS: Insulin NovoLIN Regular Correctional Sugar Inj SQ SCH (08:00)
[2018-01-27] MEDS: glipiZIDE 10 MG Tablet PO SCH (08:31)
[2018-01-27] MEDS: Senna/Docusate Sodium 8.6/50 MG Tablet PO SCH (08:32)
[2018-01-27] MEDS: Labetalol 100 MG Tablet PO SCH (08:32)
--- NOTE | 2018-01-27 11:13 | P.PNOB ---
Subjective Post day: 4 Interval history: Pt had no acute events overnight. Pain is controlled, taking PO, voiding and stooling, and ambulating. Lochia is reducing. Pt is and bottle feeding. BG is 146 this morning. Pt will discuss control options with her OB doctor at next visit. Pt would like to go home today. Denies CP, SOB, N/V/D and leg pain. Objective Result Diagrams: 01/22/18 16:30 01/22/18 16:30 Objective Remarks: GENERAL: Well-nourished, well-developed patient in NAD. CARDIOVASCULAR: Regular rate and rhythm without murmurs, gallops, or rubs. RESPIRATORY: Breath sounds equal bilaterally. No accessory muscle use. ABDOMEN/GI: Abdomen soft, non-tender. Fundus: Firm, non-tender at umbilicus. GENITOURINARY: Light to moderate bleeding. EXTREMITIES: No cyanosis or edema, non-tender, without signs of DVT. Medications and IVs: Active Medications Acetaminophen (Tylenol) 650 mg PO Q4H PRN PRN Reason: HEADACHE PAIN Last Admin: 01/25/18 20:58 Dose: 650 mg Acetaminophen (Tylenol) 650 mg PO Q4H PRN PRN Reason: PAIN SCALE 1 TO 2 Al Hydroxide/Mg Hydroxide (Milk Of Magnesia Liq) 30 ml PO Q12H PRN PRN Reason: Mild Constipation Benzocaine (Americaine 20% Top [place]) 1 spray TOPICAL Q4H PRN PRN Reason: For Perineum Discomfort Bisacodyl (Dulcolax Supp) 10 mg RECTAL DAILY PRN PRN Reason: SEVERE CONSITIPATION Calcium Gluconate (Calcium Gluconate Inj) 1 gm IV.PUSH PRN PRN PRN Reason: Magnesium toxicity Dextrose (D50w Vial) 50 ml IV.PUSH UNSCH PRN PRN Reason: PER HYPOGLYCEMIA PROTOCOL Fentanyl Citrate (Fentanyl Inj) 50 mcg IV.PUSH Q1H PRN PRN Reason: Pain Scale 3 - 5 Fentanyl Citrate (Fentanyl Inj) 100 mcg IV.PUSH Q1H PRN PRN Reason: PAIN SCALE 6 TO 10 Last Admin: 01/22/18 22:47 Dose: 100 mcg Glipizide (Glucotrol) 10 mg PO BID@0800,1700 DUNIA Last Admin: 01/27/18 08:31 Dose: 10 mg Glucagon (Glucagon Inj) 1 mg OTHER PRN PRN PRN Reason: for Hypoglycemia Protocol Sodium Chloride (Ns Inj) 500 mls @ 1,000 mls/hr IV.SIG UNSCH PRN PRN Reason: SEE LABEL COMMENTS Sodium Chloride (Ns Inj) 1,000 mls @ 100 mls/hr IV.CONT .Q10H PRN PRN Reason: SEE LABEL COMMENTS Last Admin: 01/22/18 19:27 Dose: 100 mls/hr Sodium Chloride (1/2 Normal Saline Inj) 1,000 mls @ 75 mls/hr IV.CONT .[id number] [facility] Last Admin: 01/23/18 21:07 Dose: Not Given Magnesium Sulfate (Magnesium Sulfate/Water 40 Gm/1000 Ml Premix) 40 gm in 1, 000 mls @ 50 mls/hr IV.CONT Q24H [facility] Last Admin: 01/23/18 21:07 Dose: Not Given Fentanyl/Bupivacaine/Sodium Chlor (Fentanyl 2 Mcg-Bupiv 0.125% Epi) 150 mls @ 10 mls/hr EPIDURAL PRN PRN PRN Reason: for Labor Pain Last Admin: 01/22/18 23:55 Dose: 10 mls/hr Ibuprofen (Motrin) 800 mg PO Q8H PRN PRN Reason: For cramping Last Admin: 01/25/18 20:59 Dose: 800 mg Insulin Human NPH (Novolin N Inj) 15 units SQ BIDAC [facility] Last Admin: 01/27/18 08:33 Dose: 15 units Insulin Human Regular (Novolin R Correctional Sugar Inj) 0 units SQ ACHS [facility]; Protocol Last Admin: 01/26/18 21:00 Dose: Not Given Insulin Human Regular (Novolin R Inj) 10 units SQ BIDAC [facility] Last Admin: 01/27/18 08:38 Dose: 10 units Labetalol HCl (Trandate) 100 mg PO BID [facility] Last Admin: 01/27/18 08:32 Dose: 100 mg Lactulose (Lactulose Liq) 30 ml PO DAILY PRN PRN Reason: SEVERE CONSITIPATION Mineral Oil (Muri-Lube Oil) 10 ml TOPICAL PRN PRN PRN Reason: PRN perineal massage Naloxone HCl (Narcan Inj) 0.1 mg IV.PUSH Q2M PRN PRN Reason: for opiate reversal Nifedipine (Procardia) 20 mg PO NOW PRN PRN Reason: SEE LABEL COMMENTS Ondansetron HCl (Zofran Odt) 4 mg PO Q6H PRN PRN Reason: NAUSEA OR VOMITING Last Admin: 01/23/18 04:36 Dose: 4 mg Senna/Docusate Sodium (Conchita-Colace) 1 tab PO BID [facility] Last Admin: 01/27/18 08:32 Dose: 1 tab Sennosides (Senokot) 17.2 mg PO Q12H PRN PRN Reason: Moderate Constipation Sodium Chloride (Ns Flush) 2 ml IV.FLUSH BID [facility] Last Admin: 01/26/18 23:14 Dose: Not Given Sodium Chloride (Ns Flush) 2 ml IV.FLUSH PRN PRN PRN Reason: FLUSH AFTER USING IV ACCESS Witch Sharmin/Glycerin (Tucks Pads) 1 applicatio RECTAL QID PRN PRN Reason: HEMORRHOIDS Zolpidem Tartrate (Ambien) 5 mg PO HS PRN PRN Reason: SLEEP Assessment and Plan - Diagnosis (1) Vaginal delivery Code(s): O80 - Encounter for full-term uncomplicated delivery Status: Acute Plan: Patient is a 37-year-old delivered at 39 weeks and 0 days. Patient is day 4 after . Patient was counseled to do 6 weeks of pelvic rest. Patient was counseled to follow up with Dr Fermin in 1-2 days. Pt will discuss control options at f/u visit. --AF VSS --BG 146 this morning --Continue routine care --Motrin and Tylenol when necessary for pain --Encourage OOB --Pelvic rest for 6 weeks will need follow-up appointment at that time. --Contraception: outpatient --Anticipate discharge today (2) Gestational diabetes Code(s): O24.419 - Gestational diabetes mellitus in , unspecified control Status: Acute Plan: Blood glucose this morning 146. Improving. -Will continue 15 units NPH insulin BIDPC and 10 units regular insulin BIDPC as outpt -check bedside glucose levels every 4 hours -have nursing notify MD if glucose >200 -continue on glipizide 10mg BID (3) Hypertension affecting Code(s): O16.9 - Unspecified maternal hypertension, unspecified trimester Status: Acute Plan: Patient was initially induced for preeclampsia and elevated pressures Blood pressures have been in 140s-150s / 80s/90s overnight Procardia 10 mg p.o. 1, labetalol 100 mg p.o. twice daily Pt has been controlled on Labetalol 100 mg BID Pt DW Dr Dyson
== END 2018-01-27 13:52 | disposition home or self-care (01) ==
LOC: HOBED 16:00 → H2E 17:21 → H1EA 01-24 03:32
PROVIDERS: ADMIT Obstetrics & Gynecology; ATTEND Obstetrics & Gynecology